=== PATIENT | male | born 1975 | race Caucasian/White ===

== ENCOUNTER 2018-01-01 11:57 | Emergency (ER) | payer OTHER ==
[~2018-01-01] VITALS: Ht 185.4 cm; Wt 81.7 kg
[~2018-01-01 11:57] MED LIST: APAP/CODEINE ELI5 M1 OR; AUGMENTIN 875875 MG PO; IBUPROFEN 600600 M1 PO; NORCO 5-325 TA1 EACH PO; SALINE360 M1; [UNRECOGNIZED DRUG - OTHER]
[2018-01-01 12:38] LABS: ABSOLUTE NEUTROPHILS 8.3 thou/uL (1.4-8.2); EOSINOPHILS 1.5 % (0.0-3.0); HEMATOCRIT 44.5 % (42.0-52.0); HEMOGLOBIN 15.6 gm/dL (14.0-18.0); LYMPHOCYTES 18.9 % (24.0-44.0); MCH 29.3 pg (26.0-34.0); MCHC 34.9 g/dL (28.0-37.0); MCV 83.9 fL (80.0-100.0); MONOCYTES 4.6 % (1.0-8.0); PLATELET COUNT 298 thou/uL (150-400); RBC 5.31 mil/uL (4.50-6.00); RDW 13.4 % (10.5-14.5); WBC 11.2 thou/uL (4.0-11.0)
[2018-01-01] MEDS ORDERED: SINGULAIR 10 MG10 M1 PO (12:39)
[2018-01-01] MEDS ORDERED: ALLEGRA ALLERGY60 MG PO (12:40)
[2018-01-01] MEDS ORDERED: ZANTAC 7575 MG PO (12:40)
[2018-01-01 12:51] LABS: CALCIUM 9.3 mg/dL (8.5-10.1); CREATININE 0.8 mg/dL (0.7-1.3); POTASSIUM 4.3 mmol/L (3.5-5.1)
[2018-01-01] MEDS ORDERED: PENICILLIN V P500 MG PO (13:40)
[2018-01-01] MEDS ORDERED: FLONASE 0.05%50 MCG NASAL (13:40)
[2018-01-01 14:19] VITALS: BP 134/85
== END 2018-01-01 14:21 | disposition home or self-care (01) ==
LOC: ER 11:57
PROVIDERS: Physician Assistant
DX: K02.9 Dental caries, unspecified (principal); R51 Headache; F17.210 Nicotine dependence, cigarettes, uncomplicated; Z88.6 Allergy status to analgesic agent; Z88.1 Allergy status to other antibiotic agents